=== PATIENT | female | born 1980 | race Caucasian/White ===

== ENCOUNTER 2020-07-11 16:29 | Emergency (ER) | payer OTHER ==
[2020-07-11 17:17] LABS: HEMOGLOBIN 13.9 gm/dl (12.3-15.3); RED BLOOD COUNT 4.37 M/UL (4.00-5.10); WHITE BLOOD COUNT 6.3 K/UL (4.5-11.0)
[2020-07-11 17:35] LABS: BUN/CREATININE RATIO 10 (0-10)
== END 2020-07-11 19:13 | disposition home or self-care (01) ==
LOC: ER1 16:29
PROVIDERS: Physician Assistant Medical
DX: R59.0 Localized enlarged lymph nodes (principal); R42 Dizziness and giddiness; K21.9 Gastro-esophageal reflux disease without esophagitis; Z88.5 Allergy status to narcotic agent; Z88.8 Allergy status to other drugs, medicaments and biological substances; Z79.899 Other long term (current) drug therapy
CPT/HCPCS: 71045; 80053; 81001; 82550; 82553; 83874; 84484; 85025; 93005; 99285